=== PATIENT | female | born 1960 | race Caucasian/White ===

== ENCOUNTER → 2019-07-23 09:51 | Outpatient (BNVA) | payer MEDICARE, MEDICAID, SELFPAY | PROVIDERS: Family Provider Clinical Nurse Specialist Adult Health; PCP Clinical Nurse Specialist Adult Health; Visit Provider Nurse Practitioner | DX: M54.9 Dorsalgia, unspecified (principal); M25.562 Pain in left knee; F17.210 Nicotine dependence, cigarettes, uncomplicated; Z79.891 Long term (current) use of opiate analgesic; Z71.6 Tobacco abuse counseling | CPT/HCPCS: 99214 ==

== ENCOUNTER → 2019-11-18 10:12 | Outpatient (BNVA) | payer MEDICARE, MEDICAID, SELFPAY | PROVIDERS: Family Provider Clinical Nurse Specialist Adult Health; PCP Clinical Nurse Specialist Adult Health; Visit Provider Anesthesiology | DX: M54.5 Low back pain (principal); F17.210 Nicotine dependence, cigarettes, uncomplicated; Z79.891 Long term (current) use of opiate analgesic | CPT/HCPCS: 99213; 99214 ==

== ENCOUNTER → 2020-01-23 09:48 | Outpatient (BNVA) | payer MEDICARE, MEDICAID, SELFPAY | PROVIDERS: Family Provider Clinical Nurse Specialist Adult Health; PCP Clinical Nurse Specialist Adult Health; Visit Provider Anesthesiology | DX: M54.41 Lumbago with sciatica, right side (principal); M54.42 Lumbago with sciatica, left side; F17.210 Nicotine dependence, cigarettes, uncomplicated; Z79.891 Long term (current) use of opiate analgesic | CPT/HCPCS: 99213; 99214 ==

== ENCOUNTER → 2020-03-16 10:11 | Outpatient (BNVA) | payer MEDICARE, MEDICAID, SELFPAY | PROVIDERS: Family Provider Clinical Nurse Specialist Adult Health; PCP Clinical Nurse Specialist Adult Health; Visit Provider Anesthesiology | DX: M54.5 Low back pain (principal); F17.210 Nicotine dependence, cigarettes, uncomplicated; Z79.891 Long term (current) use of opiate analgesic | CPT/HCPCS: 99212; 99214 ==

== ENCOUNTER → 2020-05-21 09:47 | Outpatient (BNVA) | payer MEDICARE, MEDICAID, SELFPAY | PROVIDERS: Family Provider Clinical Nurse Specialist Adult Health; PCP Clinical Nurse Specialist Adult Health; Visit Provider Anesthesiology | DX: G89.29 Other chronic pain (principal); M54.5 Low back pain; M25.561 Pain in right knee; M25.562 Pain in left knee; F17.210 Nicotine dependence, cigarettes, uncomplicated; Z79.891 Long term (current) use of opiate analgesic | CPT/HCPCS: 99214 ==

== ENCOUNTER → 2020-08-26 10:28 | Outpatient (BNVA) | payer MEDICARE, MEDICAID, SELFPAY | PROVIDERS: Family Provider Clinical Nurse Specialist Adult Health; PCP Clinical Nurse Specialist Adult Health; Visit Provider Anesthesiology | DX: G89.29 Other chronic pain (principal); M54.5 Low back pain; F17.210 Nicotine dependence, cigarettes, uncomplicated; Z79.891 Long term (current) use of opiate analgesic | CPT/HCPCS: 99213 ==

== ENCOUNTER → 2020-10-22 11:21 | Outpatient (BNVA) | payer MEDICARE, MEDICAID, SELFPAY | PROVIDERS: Family Provider Clinical Nurse Specialist Adult Health; PCP Clinical Nurse Specialist Adult Health; Visit Provider Nurse Practitioner | DX: G89.29 Other chronic pain (principal); M54.5 Low back pain; F17.210 Nicotine dependence, cigarettes, uncomplicated; Z79.891 Long term (current) use of opiate analgesic; Z71.6 Tobacco abuse counseling | CPT/HCPCS: 99214 ==

== ENCOUNTER → 2020-12-15 10:58 | Outpatient (BNVA) | payer MEDICARE, MEDICAID, SELFPAY | PROVIDERS: Family Provider Clinical Nurse Specialist Adult Health; PCP Clinical Nurse Specialist Adult Health; Visit Provider Nurse Practitioner | DX: G89.29 Other chronic pain (principal); M54.5 Low back pain; F17.210 Nicotine dependence, cigarettes, uncomplicated; Z79.891 Long term (current) use of opiate analgesic; Z71.6 Tobacco abuse counseling | CPT/HCPCS: 99213; 99214; 99406 ==

== ENCOUNTER → 2021-02-25 10:34 | Outpatient (BNVA) | payer MEDICARE, MEDICAID, SELFPAY | PROVIDERS: Family Provider Clinical Nurse Specialist Adult Health; PCP Clinical Nurse Specialist Adult Health; Visit Provider Nurse Practitioner | DX: G89.29 Other chronic pain (principal); M54.5 Low back pain; F17.210 Nicotine dependence, cigarettes, uncomplicated; Z79.891 Long term (current) use of opiate analgesic; Z71.6 Tobacco abuse counseling | CPT/HCPCS: 99214 ==

== ENCOUNTER → 2021-04-27 10:24 | Outpatient (BNVA) | payer MEDICARE, MEDICAID, SELFPAY | PROVIDERS: Family Provider Clinical Nurse Specialist Adult Health; PCP Clinical Nurse Specialist Adult Health; Visit Provider Anesthesiology | DX: G89.29 Other chronic pain (principal); M54.50 Low back pain, unspecified; F17.210 Nicotine dependence, cigarettes, uncomplicated; Z79.891 Long term (current) use of opiate analgesic; Z71.6 Tobacco abuse counseling | CPT/HCPCS: 99214 ==

== ENCOUNTER → 2021-06-24 09:59 | Outpatient (BNVA) | payer MEDICARE, MEDICAID, SELFPAY | PROVIDERS: Family Provider Clinical Nurse Specialist Adult Health; PCP Clinical Nurse Specialist Adult Health; Visit Provider Anesthesiology | DX: G89.29 Other chronic pain (principal); M54.50 Low back pain, unspecified; F17.210 Nicotine dependence, cigarettes, uncomplicated; Z79.891 Long term (current) use of opiate analgesic | CPT/HCPCS: 99213 ==